=== PATIENT | male | born 1950 | race Caucasian/White ===

== ENCOUNTER 2019-10-07 17:27 | Emergency (ER) | payer MEDICARE, OTHER ==
[~2019-10-07] VITALS: Ht 185.4 cm; Wt 85.0 kg
[2019-10-07 22:04] VITALS: BP 129/79
== END 2019-10-07 23:00 | disposition home or self-care (01) ==
LOC: EMS 17:27
DX: M13.862 Other specified arthritis, left knee (principal); M13.861 Other specified arthritis, right knee; G89.29 Other chronic pain